=== PATIENT | male | born 1965 | race Caucasian/White ===

== ENCOUNTER 2018-04-22 00:34 | Day surgery (SDC) | payer OTHER ==
[2018-04-22 00:55] VITALS: BMI 27.1
--- NOTE | 2018-04-22 01:36 | PDOC ---
History of Present Illness - General Chief Complaint: Pain Stated Complaint: ABDOMINAL PAIN Time Seen by Provider: 04/22/18 00:41 - History of Present Illness Initial Comments: This 53-year-old man presents with a one-day history of progressive abdominal pain: He awakened with periumbilical pain this morning. Throughout the day, pain became a little bit more severe and located in the right lower quadrant this evening. He has mild nausea but no vomiting. Otherwise no associated symptoms present with no fever/chills/diarrhea. He has not had anorexia, tolerating a sandwich at lunch because he was hungry. There was no vomiting present postprandially. Past history notable for acute appendicitis in April . Patient presented with right lower quadrant pain here and acute appendicitis was diagnosed after CT scan; he was admitted and treated with IV antibiotics with resolution of symptoms. He denies significant pain/tenderness in right lower quadrant since then until today Past History - Past Medical History Allergies/Adverse Reactions: Allergies Allergy/AdvReac Type Severity Reaction Status Date / Time No Known Allergies Allergy Unverified 04/29/12 03:01 Home Medications: Ambulatory Orders No Home Medications 0 dose .ROUTE UTDICT 11/27/13 Amox-Tr/K Cl [Augmentin - 875Mg Tablet] 1 tab PO BID #10 tablet 04/22/18 Oxycodone HCl/Acetaminophen [Percocet 5/325 -] 1 tab PO Q6H #40 tab MDD 5 COPD: No Other medical history: RECENT APPENDICITIS TX WITH ABX - Surgical History Orthopedic Surgery: Yes - Immunization History Td Vaccination: No - Suicide/Smoking/Psychosocial Hx Smoking Status: No Smoking History: Never smoked Have you smoked in the past 12 months: No Number of Cigarettes Smoked Daily: 0 Hx Alcohol Use: Yes (SOCIALLY) Drug/Substance Use Hx: No Substance Use Type: None Hx Substance Use Treatment: No Review of Systems - Review of Systems Able to Perform ROS?: Yes Comments:: 12 point review of systems is negative except for what is noted in the history of present illness *Physical Exam - Vital Signs Last Vital Signs Temp Pulse Resp BP Pulse Ox 98 F 75 16 109/95 99 04/22/18 00:35 04/22/18 00:35 04/22/18 00:35 04/22/18 00:35 04/22/18 00:35 - Physical Exam Comments: GENERAL: Adult male, alert and oriented 3, in no acute distress HEAD: Normal with no signs of trauma. EYES: PERRLA, EOMI, sclera anicteric, conjunctiva clear. ENT: Ears normal, nares patent, oropharynx clear without exudates. Dry mucous membranes. NECK: Normal range of motion, supple without lymphadenopathy, JVD, or masses. LUNGS: Breath sounds equal, clear to auscultation bilaterally. No wheezes, and no crackles. HEART:Regular rate and rhythm, normal S1 and S2 without murmur, rub or gallop. ABDOMEN:.normal bowel sounds; moderate right lower quadrant tenderness without involuntary guarding or rebound; no masses EXTREMITIES: Normal range of motion, no edema. No clubbing or cyanosis. No erythema, or tenderness. NEUROLOGICAL: Cranial nerves II through XII grossly intact. Normal speech. No focal neurological deficits. MUSCULOSKELETAL: Back non-tender to palpation, no CVA tenderness SKIN: Warm, Dry, normal turgor, no rashes or lesions noted. ED Treatment Course - LABORATORY CBC & Chemistry Diagram: 04/22/18 01:05 04/22/18 01:05 Progress Note - Progress Note Progress Note: This 53-year-old man with a history of acute appendicitis 6 years ago that resolved after administration of IV antibiotics and did not recur until yesterday presents with very similar pain quality and pattern. Patient has no other associated symptoms of anorexia/vomiting and has no fever. Exam notable for point tenderness at McBurney's point without significant guarding or rebound. Laboratory evaluation notable for mild prerenal azotemia with BUN of 22 and creatinine 1.2. White blood cell count is normal at 9700 and the remainder of the blood work is unremarkable. The patient was able tolerate oral contrast for his abdominal/pelvic CT without difficulty. No antiemetics or analgesics needed to be administered. Patient received 1 L normal saline prior to his CT study CT preliminary interpretation by Imaging assistant plant control operator: notable for a mildly distended appendix (fluid-filled) measuring 11 mm. There is haziness in the surrounding fat tissue no evidence of abscess/perforation or other complications. Results discussed with the patient. Zosyn 4.5 grams IV administered. The patient continues to be relatively comfortable and denies significant nausea or severe pain. He does not want any antiemetics or analgesia at this time. 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 Case discussed with Dr. Ferris ; because of full load of OR cases for him at [facility] tomorrow, Dr. Ferris requests transfer to [facility]. No beds currently available at [facility]. Dr. Ferris re-paged and situation discussed with him: Medical Decision Making - Medical Decision Making 04/22/18 05:[address] Ferris service here at [facility] with plan to transfer to [facility])when [facility] OR ready for patient. 04/22/18 05:51 Details discussed with the patient who understands and agrees to the plan. Patient transferred up to admission bed in stable condition. *DC/Admit/Observation/Transfer Diagnosis at time of Disposition: Acute appendicitis Qualifiers: Acute appendicitis type: with localized peritonitis Appendicitis gangrene presence: without gangrene Appendicitis perforation presence: without perforation Appendicitis abscess presence: without abscess Qualified Code(s): K35.30 - Acute appendicitis with localized peritonitis, without perforation or gangrene - Discharge Dispostion Disposition: HOME Condition at time of disposition: Improved Decision to Admit order: Yes - Prescriptions - Referrals - Patient Instructions - Post Discharge Activity
[2018-04-22 02:06] LABS: BASO % 0.3 % (0-2.0); EOS % 2.1 % (0-4.5); HEMATOCRIT 43.3 % (35.4-49); HEMOGLOBIN 14.9 GM/dL (11.7-16.9); LYMPH % 23.2 % (8-40); MCH 33.5 pg (25.7-33.7); MCHC 34.5 g/dl (32.0-35.9); MEAN PLT VOLUME 8.3 fl (7.5-11.1); MONO % 8.5 % (3.8-10.2); NEUT % 65.9 % (42.8-82.8); PLATELET COUNT 225 K/MM3 (134-434); RBC 4.46 M/mm3 (4.00-5.60); RDW 13.2 % (11.9-15.9); WHITE BLOOD COUNT 9.7 K/mm3 (4.0-10.0)
[2018-04-22 02:07] LABS: URINE APPEARANCE CLEAR; URINE BILIRUBIN NEGATIVE (<2.0 mg/dL); URINE COLOR YELLOW; URINE GLUCOSE (UA) NEGATIVE (NEGATIVE); URINE KETONE NEGATIVE (NEGATIVE); URINE LEUK ESTERASE NEGATIVE (NEGATIVE); URINE NITRITE NEGATIVE (NEGATIVE); URINE PROTEIN NEGATIVE (NEGATIVE); URINE UROBILINOGEN NEGATIVE mg/dL (0.2-1.0)
[2018-04-22 02:45] LABS: ALBUMIN 3.8 g/dl (3.4-5.0); ALK PHOS 96 U/L (45-117); ANION GAP 7 MMOL/L (8-16); BILIRUBIN,TOTAL 0.7 mg/dL (0.2-1); BLOOD UREA NITROGEN 22 mg/dL (7-18); CHLORIDE 103 mmol/L (98-107); CO2 31 mmol/L (21-32); CREATININE 1.2 mg/dL (0.55-1.3); GLUCOSE,RANDOM 84 mg/dL (74-106); LIPASE 263 U/L (73-393); POTASSIUM 3.8 mmol/L (3.5-5.1); SGOT/AST 19 U/L (15-37); SGPT/ALT 26 U/L (13-61); SODIUM 141 mmol/L (136-145); TOT PROT 7.2 g/dl (6.4-8.2)
[2018-04-22] MEDS ORDERED: PIPERACILLIN/TAZOB 4.5 GM 4.5 GM in DEXTROSE 5%-WATER 100 ML IVPB ONE (04:07)
[2018-04-22] MEDS ORDERED: PIPERACILLIN/TAZOBACTAM 4.5 GM VIAL IVPB ONE (04:07)
[2018-04-22] MEDS ORDERED: REFRIGERATED ANITBIOTICS ONE (04:07)
[2018-04-22] MEDS ORDERED: SODIUM CHLORIDE 1,000 ML IV SCH (04:15)
[2018-04-22] MEDS ORDERED: ONDANSETRON 4 MG/2 ML VIAL IVPUSH PRN ×2 (05:41→13:43)
[2018-04-22] MEDS ORDERED: morphine SULFATE 4 MG/ML VIAL IVPUSH PRN (05:41)
[2018-04-22] MEDS ORDERED: LACTATED RINGERS SOLUTION 1,000 ML IV SCH (05:45)
--- NOTE | 2018-04-22 05:49 | HP ---
Admitting History and Physical - Admission Chief Complaint: abdominal pain History of Present Illness: 53 yo man no significant PMH presented with progressive abdominal pain. He awakened with periumbilical pain this morning. Throughout the day, pain became a little bit more severe and located in the right lower quadrant this evening. He has mild nausea but no vomiting. Otherwise no associated symptoms present with no fever/chills/diarrhea. He has not had anorexia, tolerating a sandwich at lunch because he was hungry. There was no vomiting present postprandially. Past history notable for acute appendicitis in April, . Patient presented with right lower quadrant pain here and acute appendicitis was diagnosed after CT scan; he was admitted and treated with IV antibiotics with resolution of symptoms. He denies significant pain/tenderness in right lower quadrant since then until today. we were called to address. History Source: Patient, Medical Record Limitations to Obtaining History: No Limitations - Smoking History Smoking history: Never smoked Have you smoked in the past 12 months: No Aproximately how many cigarettes per day: 0 - Alcohol/Substance Use Hx Alcohol Use: Yes (SOCIALLY) Home Medications - Allergies Allergies/Adverse Reactions: Allergies Allergy/AdvReac Type Severity Reaction Status Date / Time No Known Allergies Allergy Unverified 04/29/12 03:01 - Home Medications Home Medications: Ambulatory Orders No Home Medications 0 dose .ROUTE UTDICT 11/27/13 Review of Systems - Review of Systems Constitutional: denies: Chills, Fever HENT: denies: Difficult Swallowing, Throat Pain Neck: denies: Decreased ROM, Tenderness Cardiovascular: denies: Chest Pain, Palpitations Respiratory: denies: Cough, SOB Gastrointestinal: denies: Abdominal Pain, Constipation, Diarrhea Genitourinary: denies: Discharge, Dysuria, Testicular Pain Breasts: reports: No Symptoms Reported. denies: Pain Musculoskeletal: denies: Muscle Cramps, Muscle Weakness Integumentary: denies: Erythema, Lesions, Rash Neurological: denies: Seizure, Syncope Endocrine: denies: Unexplained Weight Gain, Unexplained Weight Loss Hematology/Lymphatic: denies: Easily Bruised, Excessive Bleeding Psychiatric: denies: Anxiety, Depression Physical Examination Vital Signs: Vital Signs Temperature 97.8 F 04/22/18 05:36 Pulse Rate 78 04/22/18 05:36 Respiratory Rate 18 04/22/18 05:36 Blood Pressure 95/59 L 04/22/18 05:36 O2 Sat by Pulse Oximetry (%) 98 04/22/18 05:36 Constitutional: Yes: Well Nourished, No Distress, Calm Eyes: Yes: Conjunctiva Clear, EOM Intact HENT: Yes: Atraumatic, Normocephalic Neck: Yes: Supple, Trachea Midline Cardiovascular: Yes: Regular Rate and Rhythm, S1, S2 Respiratory: Yes: Regular, CTA Bilaterally Gastrointestinal: Yes: Normal Bowel Sounds, Soft, Tenderness (RLQ). No: Distention ...Rectal Exam: Yes: Deferred Renal/: No: CVA Tenderness - Left, CVA Tenderness - Right Breast(s): No: Gynecomastia, Mass Musculoskeletal: No: Muscle Pain, Muscle Weakness Extremities: No: Cool, Cyanosis Edema: No Peripheral Pulses WNL: Yes Peripheral Pulses: Left Radial: 2+, Right Radial: 2+, Left Doralis Pedis: 2+, Right Dorsalis Pedis: 2+ Integumentary: No: Jaundice, Petechiae, Pressure Ulcer, Rash Neurological: Yes: Alert, Oriented Psychiatric: Yes: Alert, Oriented Labs: CBC, BMP 04/22/18 01:05 04/22/18 01:05 Imaging - Results Cat Scan: Report Reviewed, Image Reviewed (inflamed appendix RLQ laterally) Problem List - Problems (1) Acute appendicitis Assessment/Plan: 53yo male with Acute appendicitis with localized peritonitis NPO and IVF hydration IV antibiotics OR for Lap appendectomy Discussed with patient risks, benefits and alternatives of laparoscopic possible open appendectomy, including but not limited to bleeding, infection, injury to adjacent structures, leak or injury, intraabdominal abscess, incisional hernia, need for further procedures, ; alternatives include antibiotics, delayed or no surgery - risks of this include failure of nonoperative therapy, perforation, sepsis, recurrence, . Patient desires to proceed with operation - will take to OR for above. Informed consent signed for same. Code(s): K35.80 - UNSPECIFIED ACUTE APPENDICITIS Qualifiers: Acute appendicitis type: with localized peritonitis Appendicitis gangrene presence: without gangrene Appendicitis perforation presence: without perforation Appendicitis abscess presence: without abscess Qualified Code(s) : K35.30 - Acute appendicitis with localized peritonitis, without perforation or gangrene (2) Right lower quadrant abdominal pain Code(s): R10.31 - RIGHT LOWER QUADRANT PAIN (3) Localized peritonitis Code(s): K65.9 - PERITONITIS, UNSPECIFIED
[2018-04-22] MEDS ORDERED: ACETAMINOPHEN 1000 MG/100 ML VIAL (NON FORMULARY) IVPB ONE (06:40)
[2018-04-22 08:33] LABS: INR 1.08 (0.82-1.09); PROTHROMBIN TIME (PATIENT) 12.1 SEC (10.2-13.0)
[2018-04-22] MEDS ORDERED: MIDAZOLAM HCL 2 MG/2 ML SINGLE DOSE VIAL ONE (12:07)
[2018-04-22] MEDS ORDERED: ONDANSETRON 4 MG/2 ML VIAL ONE ×2 (12:07→14:11)
[2018-04-22] MEDS ORDERED: PROPOFOL 20 ML ONE (12:07)
[2018-04-22] MEDS ORDERED: LIDOCAINE HCL/PF 2% SDV 5ML VIAL ONE (12:07)
[2018-04-22] MEDS ORDERED: fentaNYL CITRATE 250 MCG/5 ML VIAL ONE (12:07)
[2018-04-22] MEDS ORDERED: DEXAMETHASONE SOD PHOSPHATE 4 MG/1 ML VIAL ONE (12:07)
--- NOTE | 2018-04-22 12:07 | OP ---
Operative Note - Note: Operative Date: 04/22/18 Pre-Operative Diagnosis: Acute appendicitis with localized peritonitis Operation: laparoscopic appendecytomy Findings: inflamed appendix Post-Operative Diagnosis: Same as Pre-op Surgeon: Nico Ferris Anesthesiologist/NURSE ORTHOPAEDIC: David Wei Anesthesia: General, Local Specimens Removed: appendix Estimated Blood Loss (mls): 2 Fluid Volume Replaced (mls): 500 Operative Report Dictated: Yes
--- NOTE | 2018-04-22 12:08 | DS ---
Physical Examination Vital Signs: Vital Signs Temperature 97.8 F 04/22/18 06:17 Pulse Rate 74 04/22/18 06:00 Respiratory Rate 18 04/22/18 06:17 Blood Pressure 116/77 04/22/18 06:00 O2 Sat by Pulse Oximetry (%) 98 04/22/18 07:41 Findings/Remarks: Admitted from the ED for an urgen surgical procedure. uneventful procedure. stable for discharge home when tolerating diet Constitutional: Yes: Well Nourished, No Distress, Calm Eyes: Yes: Conjunctiva Clear, EOM Intact HENT: Yes: Atraumatic, Normocephalic Neck: Yes: Supple, Trachea Midline Cardiovascular: Yes: Regular Rate and Rhythm, S1, S2 Respiratory: Yes: Regular, CTA Bilaterally Gastrointestinal: Yes: Normal Bowel Sounds, Soft ...Rectal Exam: Yes: Deferred Renal/: No: CVA Tenderness - Left, CVA Tenderness - Right Extremities: No: Cool, Cyanosis Wound/Incision: Yes: Clean/Dry, Well Approximated, Dressing Dry and Intact Neurological: Yes: Alert, Oriented Psychiatric: Yes: Alert, Oriented Labs: CBC, BMP 04/22/18 01:05 04/22/18 01:05 Discharge Summary Reason For Visit: ABDOMINAL PAIN Current Active Problems Acute appendicitis (Acute) Localized peritonitis (Acute) Right lower quadrant abdominal pain (Acute) Procedures: Principal: laparoscopic appendectomy Hospital Course: Admitted from the ED for an urgen surgical procedure. uneventful procedure. stable for discharge home. Condition: Improved - Instructions Diet, Activity, Other Instructions: Postoperative instructions: You had a laparoscopic appendectomy on 04/22/[address] Nico Ferris of [facility]. Activity: Resume your usual activities gradually, but no heavy exertion or lifting more than 10-15 pounds for 1 month. Remove dressings 48 hours after surgery; sticky tapes underneath will fall off by themselves. You may shower daily starting then, just pat the incision areas dry. No bath or swimming until skin incisions have healed. Eat lightly at first, but advance to your usual diet as tolerated. Pain: For pain, you may use and alternate Tylenol (acetaminophen) 1-2 pills and/ or ibuprofen 200 mg (1-3 pills) every 6 hours each as needed; this means that you can take one OR the other at 3-hour intervals. If you are prescribed a Tylenol/narcotic combination for severe pain, use it instead of plain Tylenol as needed and switch back when your pain starts decreasing. Do not take more than 4000mg of acetaminophen in a day. Take medications as prescribed or indicated on the labeling. Follow-up: Call Dr. Ferris office at [phone] to make your postop appointment (Wednesday in approximately 2 weeks after surgery). Clinic is held in the [facility] on the first floor of [facility]. Call the office if you have: * increasing pain not responsive to pain medication * fever of 101F or higher * vomiting * unusual or increasing bleeding or drainage from wounds * increasing redness or swelling at wound sites * inability to urinate Also, see your primary medical doctor within 1-2 weeks. Disposition: HOME - Home Medications Comprehensive Discharge Medication List: Ambulatory Orders No Home Medications 0 dose .ROUTE UTDICT 11/27/13 Amox-Tr/K Cl [Augmentin - 875Mg Tablet] 1 tab PO BID #10 tablet 04/22/18 Oxycodone HCl/Acetaminophen [Percocet 5/325 -] 1 tab PO Q6H #40 tab MDD 5
[2018-04-22] MEDS ORDERED: BUPIVACAINE HCL/PF 0.5% (5MG/ML) 10 ML VIAL ONE (12:36)
[2018-04-22] MEDS ORDERED: ceFAZolin SODIUM 1 GM VIAL ONE (12:38)
[2018-04-22] MEDS ORDERED: NEOSTIGMINE METHYLSULFATE 0.5 MG/ML - 10 ML MDV ONE (13:17)
[2018-04-22] MEDS ORDERED: GLYCOPYRROLATE 0.2 MG/1 ML VIAL ONE (13:17)
[2018-04-22] MEDS ORDERED: BUPIVACAINE HCL/PF (5 MG/ML) 30 ML VIAL IJ ONE (13:20)
[2018-04-22] MEDS ORDERED: ACETAMINOPHEN 325 MG TABLET (FP) PO PRN (13:39)
[2018-04-22] MEDS ORDERED: IBUPROFEN 600 MG TABLET (FP) PO PRN (13:39)
[2018-04-22] MEDS ORDERED: PROMETHAZINE HCL 25 MG/1 ML VIAL IVPB PRN (13:43)
[2018-04-22] MEDS ORDERED: oxyCODONE HCL 5 MG TABLET PO PRN ×2 (13:43)
[2018-04-22] MEDS ORDERED: KETOROLAC TROMETHAMINE 30 MG/1 ML VIAL ONE (13:47)
[2018-04-22 14:13] VITALS: TEMP 97.3
[2018-04-22 14:28] VITALS: BP 113/71; PULSE 67
[2018-04-22] MEDS ORDERED: DEXTROSE 5%-WATER - 50 ML IVPB ONE (16:59)
[2018-04-22] MEDS ORDERED: PIPERACILLIN/TAZOBACTAM 3.375 GM VIAL IVPB ONE (17:00)
[2018-04-22] MEDS ORDERED: PIPERACILLIN/TAZOB 3.375 GM 3.375 GM in DEXTROSE 5%-WATER - 50 ML IVPB SCH (18:00)
--- NOTE | 2018-04-29 13:38 | PATH ---
Surgical Pathology Report Patient Name: ZOFIA GLEASON Med. Rec. #: [id number] /Age/Gender: 1965 (Age: 53) / M Account: [id number] Location: [facility] MED-SURG Taken: 04/22/2018 Received: 04/22/2018 Reported: 04/29/2018 Physicians: Nico Ferris M.D. Specimen(s) Received APPENDIX Clinical History Acute appendicitis Final Diagnosis APPENDIX, APPENDECTOMY: ACUTE APPENDICITIS AND PERIAPPENDICITIS. Electronically Signed Ely Owen M.D. Gross Description Received in formalin, labeled "appendix," is a 6 cm. in length vermiform appendix with a stapled margin of resection and moderate attached fat. The serosa is carroll-pink and smooth. Sectioning reveals a hemorrhagic lumen. The wall of the appendix averages 0.2 cm. in thickness. Checking Department Supervisor sections are submitted in one cassette. 04/22/2018 saudi04/22/2018
--- NOTE | 2018-05-13 00:56 | OP ---
DATE OF OPERATION: 04/22/2018 PREOPERATIVE DIAGNOSIS: Acute appendicitis with localized peritonitis. POSTOPERATIVE DIAGNOSIS: Acute appendicitis with localized peritonitis. PROCEDURE: Laparoscopic appendectomy. ATTENDING SURGEON: Nico Ferris MD WIRE WEAVING LOOM SETTER: None. ANESTHESIA: LUDA Quinones ANESTHESIA TYPE: General with local. Local consisted of 0.5% Marcaine and 1% lidocaine. A total of 10 mL was given in the area block fashion at the umbilical port site. ESTIMATED BLOOD LOSS: 2 mL INTRAVENOUS FLUIDS: 500 mL SPECIMENS: Appendix. BRIEF FINDINGS: Inflamed appendix. INDICATIONS: The patient is presenting with a history of abdominal pain for 2 days, worsening and focal to the right lower quadrant. CT confirmed the presence of acute appendicitis given the thickened and inflamed appendix that was identified greater than 1 cm. He was counseled regarding the risks, benefits, and alternatives to surgical laparoscopic appendectomy. Signed informed consent and was taken to the procedure. DESCRIPTION OF PROCEDURE: The patient was brought to the operating room and placed in the supine position on the operating table with both arms extended 90 degrees perpendicular to the body's midline axis. The anterior abdominal wall was shaved, prepped, and draped in the standard surgical fashion. Patient had SCDs placed to compression. He received intravenous antibiotics prior to the start of surgery. He was induced with general anesthesia and endotracheally intubated, at which point we began first with a supraumbilical approach after a formal timeout was completed with all parties in agreement. An incision was incised with a 15-blade scalpel. Deepened and widened through the subcutaneous tissue. Care was taken to dissect down to the anterior midline fascia at the umbilicus. It was grasped and elevated out of the field and then entered bluntly into the abdomen. The finger was used to explore the abdomen and clear the anterior abdominal adhesions. Once clear, a 15-mm Asad trocar was installed into the abdomen and pneumoperitoneum was established to 15 mmHg. We began first with inspection of the entry site, which appeared atraumatic. Additional port sites were placed at the supraumbilical position in the left lower quadrant. With this done, the patient was placed into Trendelenburg with a slight rotation towards the operating surgeon on the left side. The cecum was identified and traced with the teniae down to the base of the appendix. The appendix was grasped mid-structure and the base was isolated from the mesoappendix. A plane was developed, at which point a stapler was used after the camera was replaced in the left lower quadrant from the umbilical port. I transected the base of the appendix with an EndoGIA stapler size 50 mm. When this was completed, the mesoappendix was then taken in its entirety using LigaSure device to transect the mesoappendix and obtain hemostasis. The patient was then leveled and the small amount of bloody effluent in the area was suctioned from the abdomen. The appendix was then retrieved from the umbilical port using an EndoCatch bag with the specimen passed off of the field. The trocars were removed under direct visualization. The remainder of the abdomen was inspected and appeared normal, at which point we began then to relieve the pneumoperitoneum and close the abdominal fascia. The fascia was approximated with a [id number] in interrupted fashion at the umbilical port and 4-0 Vicryl at the remaining skin port sites x3, in a running subcuticular fashion. The skin was cleaned. Sterile dressings were placed. Patient was awoken from general anesthesia, having tolerated the procedure well. Counts were correct. He returned to recovery room in stable condition. MD GALE Medina/[id number]
== END 2018-04-22 19:37 | disposition home or self-care (01) ==
LOC: FER 00:34 → UNDOADMIN 05:13 → FM/S 05:13 → FASUSAT 05:41 → FM/S 05:45 → UNDOADMIN 05:45 → FM/S 14:37 → FASUSAT 19:37
PROC: 0DTJ4ZZ Resection of Appendix, Percutaneous Endoscopic Approach (ICD-10-PCS; principal; 2018-04-22 12:54)
DX: K35.30 Acute appendicitis with localized peritonitis, without perforation or gangrene (principal)
CPT/HCPCS: 36415; 74177-TC; 80053; 81003; 83690; 85025; 85610; 86850; 86900; 86901; 88304-TC; 94760; 99285-25; J0131; J7030